=== PATIENT | male | born 1955 | race Caucasian/White ===

== ENCOUNTER 2017-04-03 08:41 | Day surgery (SDC) | payer BC ==
[2017-04-02 10:17] VITALS: BMI 27.1
[2017-04-03 10:03] LABS: #Basophils 0.1 thou/uL (0.0-0.2); #Eosinphils 0.1 thou/uL (0.0-0.7); #Lymphocytes 1.3 thou/uL (1.20-3.40); #Monocytes 0.5 thou/uL (0.11-0.59); #Neutrophils 4.1 thou/uL (1.40-6.50); %Basophils 1.3 % (0.0-1.0); %Eosinophils 2.3 % (0.0-10.0); %Lymphocytes 21.5 % (21.0-51.0); %Monocytes 8.3 % (0.0-10.0); %Neutrophils 66.6 % (42.0-75.0); Hemoglobin 14.9 g/dL (14.0-18.0); Mean Corpuscular HGB CONC 32.9 g/dL (32.0-36.0); Mean Corpuscular Hemoglobin 31.5 pg (27.0-31.0); Mean Corpuscular Volume 95.8 fl (80.0-94.0); Mean Platelet Volume 8.1 fL (7.4-10.4); Platelet Count 282 thou/uL (130-400); RBC Distribution Width 11.1 % (11.5-14.5); Red Blood Cell (RBC) Count 4.74 mill/uL (4.70-6.10); White Blood Cell (WBC) Count 6.1 thou/uL (4.8-10.8)
[2017-04-03 10:15] LABS: Prothrombin Time 13.4 SEC (12.0-14.7)
[2017-04-03 10:16] LABS: PTT 25.3 SEC (22.9-36.1)
[2017-04-03 10:28] LABS: Anion Gap 15 mmol/L (10-20); BUN (Urea Nitrogen) 14 mg/dL (8.4-25.7); Calc. Creatinine Clearance 83 mL/min (70-130); Calcium 9.5 mg/dL (7.8-10.44); Carbon Dioxide 27 mmol/L (23-31); Chloride 103 mmol/L (98-107); Estimated GFR-MDRD 73; Glucose 108 mg/dL (80-115); Potassium 3.6 mmol/L (3.5-5.1); Sodium 141 mmol/L (136-145)
[2017-04-03] MEDS ORDERED: Midazolam HCl 2 mg/2 ml Vial ONE (11:38)
[2017-04-03] MEDS ORDERED: Fentanyl 100 MCG/2 ML VIAL ONE (11:38)
[2017-04-03] MEDS ORDERED: Bacitracin Zinc Ointment 30 gm TUBE ONE (11:45)
[2017-04-03] MEDS ORDERED: Thrombin 5000 UNITS/5 ML VIAL ONE (11:45)
[2017-04-03] MEDS ORDERED: CEFAZOLIN/Water 2 GM/20 ML SYRINGE ONE (12:16)
[2017-04-03] MEDS ORDERED: Ondansetron HCl/PF 4 MG/2 ML Vial ONE (12:51)
[2017-04-03] MEDS ORDERED: PROPOFOL 200 MG/20 ML VIAL ONE (12:51)
[2017-04-03] MEDS ORDERED: Lidocaine 1% PF 5 ML VIAL ONE (12:51)
[2017-04-03] MEDS ORDERED: Dexamethasone 20 MG/5 ML VIAL ONE (12:51)
[2017-04-03] MEDS ORDERED: Glycopyrrolate 0.2 MG/ML 5 ML SYRINGE ONE (12:51)
[2017-04-03] MEDS ORDERED: ePHEDrine/0.9% NaCl/PF SYRINGE 50 mg/10 ml ONE (12:51)
[2017-04-03] MEDS ORDERED: PHENYLEPHRINE-NS 100 MCG/ML 10 ML SYRINGE ONE (12:51)
[2017-04-03] MEDS ORDERED: Fentanyl 250 MCG/5 ML VIAL ONE (14:03)
[2017-04-03] MEDS ORDERED: Promethazine HCl 25 MG/ML VIAL SLOW IVP PRN (16:06)
[2017-04-03] MEDS ORDERED: Meperidine HCl/PF 25 MG/ML VIAL SLOW IVP PRN (16:06)
[2017-04-03] MEDS ORDERED: Morphine Sulfate 2 MG/ML SYRINGE SLOW IVP PRN (16:06)
[2017-04-03] MEDS ORDERED: HYDROmorphone 2 MG/ML VIAL SLOW IVP PRN (16:06)
[2017-04-03] MEDS ORDERED: Promethazine 25 MG TAB PO PRN (16:23)
[2017-04-03] MEDS ORDERED: Fleet Enema 133 ML BOT PR PRN (16:23)
[2017-04-03] MEDS ORDERED: Acetaminophen/Codeine 30-300mg Tablet PO PRN (16:23)
[2017-04-03] MEDS ORDERED: Bisacodyl 10 MG SUPP PR PRN (16:23)
[2017-04-03] MEDS ORDERED: Milk Of Magnesia 30 ML UDCUP PO PRN (16:23)
[2017-04-03] MEDS ORDERED: traMADol HCl 50 MG TAB PO PRN (16:23)
[2017-04-03] MEDS ORDERED: Mag-Al 1200 mg/1200 mg/30 ML UDCUP PO PRN (16:23)
[2017-04-03] MEDS ORDERED: Acetaminophen 325 MG TAB PO PRN (16:23)
[2017-04-03] MEDS ORDERED: Ondansetron HCl/PF 4 MG/2 ML Vial IVP PRN (16:23)
[2017-04-03] MEDS ORDERED: tiZANidine HCl 4 MG TAB PO PRN (16:23)
[2017-04-03] MEDS ORDERED: Nitroglycerin 0.4 MG TAB (25 Tab Bottle) SL PRN (16:26)
[2017-04-03] MEDS ORDERED: Labetalol HCl 100 MG/20 ML VIAL SLOW IVP PRN (16:31)
[2017-04-03] MEDS ORDERED: HYDROmorphone 0.5 MG/0.5 ML SYRINGE ONE ×4 (16:36→19:01)
[2017-04-03] MEDS ORDERED: Labetalol HCl 100 MG/20 ML VIAL ONE (18:34)
[2017-04-03] MEDS: Sodium Chloride 0.9% 1,000 ML IV SCH (20:21)
[2017-04-03] MEDS: HYDROcodone/Acetaminophen 7.5/325 mg Tablet PO PRN (22:55)
[2017-04-03] MEDS: CEFAZOLIN/Water 2 GM/20 ML SYRINGE SLOW IVP SCH (22:55)
[2017-04-03] MEDS: Carvedilol 6.25 MG TAB PO SCH (22:56)
[2017-04-03] MEDS: Rosuvastatin 20 MG TAB PO SCH (22:56)
--- NOTE | 2017-04-03 23:45 | EKG ---
Test Reason : PREOP Blood Pressure : / mmHG Vent. Rate : 059 BPM Atrial Rate : 059 BPM P-R Int : 154 ms QRS Dur : 090 ms QT Int : 418 ms P-R-T Axes : 038 -22 027 degrees QTc Int : 413 ms Sinus bradycardia Otherwise normal ECG When compared with ECG of 08-AUG-2016 12:43, (Unconfirmed) No significant change was found Confirmed by Jayme SEALS ([id number]) on 04/03/2017 11:44:54 PM Referred By: TROY Confirmed By:Jayme SEALS
[2017-04-04] MEDS: HYDROcodone/Acetaminophen 7.5/325 mg Tablet PO PRN ×3 (04:37→16:19)
[2017-04-04] MEDS: CEFAZOLIN/Water 2 GM/20 ML SYRINGE SLOW IVP SCH (04:40)
[2017-04-04] MEDS: Sodium Chloride 0.9% 1,000 ML IV SCH ×2 (07:04→20:39)
[2017-04-04] MEDS: Chlorthalidone 25 MG TAB PO SCH (08:46)
[2017-04-04] MEDS: Carvedilol 6.25 MG TAB PO SCH ×2 (08:46→20:40)
--- NOTE | 2017-04-04 09:03 | PRG ---
DATE OF SERVICE: 04/04/2017 Mr. Akers is doing well postoperative day 1 from lumbar decompression. His leg pain is improved com pared to before surgery. He has good strength in his lower extremities. We went over both intra and postoperative issues. His wound is satisfactory. We will plan on dismissal.
--- NOTE | 2017-04-04 10:04 | OP ---
DATE OF PROCEDURE: 04/03/2017 WOUND TYPE: Type 1 wound. SURGEON: Jesse Colunga M.D. [employer] MANAGER: Simone Marcus PA-C. PREPROCEDURE DIAGNOSIS: Lumbar stenosis with low back and leg pain. POSTPROCEDURE DIAGNOSES: Lumbar stenosis with low back and leg pain. PROCEDURE: L4-L5, L5-S1 laminectomy, partial facetectomies and foraminotomies over the L4, L5, and S 1 nerve roots bilaterally. DESCRIPTION OF PROCEDURE: After informed consent was obtained from the patient, the patient brought to OR 11. Proper patient pause and identification was carried out. He was placed under excellent ge neral endotracheal anesthesia and positioned prone on the operating room table. All appropriate poin ts were padded. We identified the L4, L5 and S1 dorsal spines and lamina. A linear everton was made ov er this region. This area again was sterilely cleansed, prepared, and draped. Proper patient pause and identification was carried out. The wound was then opened with a combination of sharp, monopolar and blunt dissection, and the L4, L5 and S1 dorsal spines and lamina were exposed. Localization keesha m confirmed our area of interest. We then performed an L4, L5, and S1 laminectomies, partial facetec tomies and foraminotomies over the L4, L5, and S1 nerve roots. We had excellent decompression of the common dural tube and the nerve roots. Copious irrigation occurred. Hemostasis was maximized throu ghout. There was no spinal fluid leak. The wound was then closed in anatomic layers after sprinklin g of vancomycin powder. The patient then emerged from anesthesia.
[2017-04-04] MEDS: Morphine 2 MG/ML SYRINGE SLOW IVP PRN ×3 (10:13→18:13)
[2017-04-04] MEDS ORDERED: Gabapentin 100 MG CAP PO SCH (12:45)
[2017-04-04] MEDS: Gabapentin 100 MG CAP PO SCH ×2 (15:02→20:40)
[2017-04-04] MEDS: methylPREDNISolone 4 mg Tablet PO SCH ×3 (15:20→20:42)
[2017-04-04] MEDS: Rosuvastatin 20 MG TAB PO SCH (20:40)
[2017-04-05] MEDS: Gabapentin 100 MG CAP PO SCH (08:28)
[2017-04-05] MEDS: Carvedilol 6.25 MG TAB PO SCH (08:28)
[2017-04-05] MEDS: methylPREDNISolone 4 mg Tablet PO SCH ×2 (08:28→12:28)
[2017-04-05] MEDS: Chlorthalidone 25 MG TAB PO SCH (08:28)
[2017-04-05] MEDS: HYDROcodone/Acetaminophen 7.5/325 mg Tablet PO PRN (08:31)
[2017-04-05] MEDS: Sodium Chloride 0.9% 1,000 ML IV SCH (08:32)
--- NOTE | 2017-04-05 11:17 | PRG ---
DATE OF SERVICE: 04/05/2017 Mr. Akers is now postoperative day #2 having undergone lumbar laminectomy with Dr. Colunga. The pat ient has occurrence of right hip pain that was severe yesterday at lunchtime requiring him to stay ov ernight. Medrol Dosepak, Protonix, and gabapentin were initiated. Today the patient states he is co ntinuing to experience right hip pain, although this is improved from what it was yesterday. He stat es he would like to go home. He has been ambulating in the turner, voiding spontaneously, tolerating a solid diet and his pain is well controlled with oral medications at this time. He remains at neurol ogic baseline with good strength in the bilateral lower extremities. His incision is dressed and the dressing appears to be clean and dry. We will plan for dismissal today. I have provided appropriate medications for the patient. I have r eminded that the patient and his of appropriate postoperative activity restrictions and wound ca re. The patient is pleased with the outcome, but understands he needs continued time to heal. Again , he is stable for discharge at any time. Orders have been placed.
[2017-04-05 11:30] VITALS: BP 136/88; TEMP 98.5
[2017-04-05] MEDS: Morphine 2 MG/ML SYRINGE SLOW IVP PRN (12:27)
[2017-04-05] MEDS ORDERED: methylPREDNISolone 4 mg Tablet PO SCH (21:00)
[2017-04-06] MEDS ORDERED: methylPREDNISolone 4 mg Tablet PO SCH (08:00)
[2017-04-07] MEDS ORDERED: methylPREDNISolone 4 mg Tablet PO SCH (08:00)
[2017-04-08] MEDS ORDERED: methylPREDNISolone 4 mg Tablet PO SCH (08:00)
[2017-04-09] MEDS ORDERED: methylPREDNISolone 4 mg Tablet PO SCH (08:00)
== END 2017-04-05 13:15 | disposition home or self-care (01) ==
LOC: SDC 08:41 → SURG B 16:23 → SDC 04-05 13:15
PROVIDERS: ATTEND Surgery
PROC: 01NB0ZZ Release Lumbar Nerve, Open Approach (ICD-10-PCS; principal; 2017-04-03)
DX: M48.061 Spinal stenosis, lumbar region without neurogenic claudication (principal); M54.16 Radiculopathy, lumbar region; Z88.8 Allergy status to other drugs, medicaments and biological substances; Z98.890 Other specified postprocedural states
CPT/HCPCS: 36415; 76001; 80048; 85025; 85610; 85730; 93005; 93010; 96374; J1100; J1170; J2001; J2250; J2270; J2405; J2704; J3010; J3370

== ENCOUNTER 2018-04-11 10:08 | Outpatient (CLI) | payer OTHER ==
--- NOTE | 2018-04-11 10:38 | RAD ---
LUMBAR SPINE SERIES 2 VIEWS: HISTORY: Disability examination. FINDINGS: There are marked arthritic changes of the spine. There is moderate disk narrowing at L1-2. Prominen t osteophytic changes along the course of the lumbar spine. Mild disk narrowing at L3-4 and marked d isk narrowing at L5-S1 with laminectomy change at this level. Pedicles are intact. IMPRESSION: Moderate arthritic changes and postop changes of the spine. POS: [facility]
== END 2018-04-11 10:09 | disposition home or self-care (01) ==
LOC: BICRAD 10:08
PROVIDERS: ATTEND Internal Medicine
DX: Z02.71 Encounter for disability determination (principal); M46.96 Unspecified inflammatory spondylopathy, lumbar region; Z98.890 Other specified postprocedural states
CPT/HCPCS: 72100

== ENCOUNTER 2020-11-13 16:59 | Observation (INO) | payer BC, MEDICARE ==
[2020-11-13 18:11] LABS: #Basophils 0.1 thou/uL (0.0-0.2); #Eosinphils 0.1 thou/uL (0.0-0.7); #Lymphocytes 1.3 thou/uL (1.20-3.40); #Monocytes 0.7 thou/uL (0.11-0.59); #Neutrophils 4.8 thou/uL (1.40-6.50); %Basophils 1.1 % (0.0-1.0); %Eosinophils 0.8 % (0.0-10.0); %Lymphocytes 18.3 % (21.0-51.0); %Monocytes 9.5 % (0.0-10.0); %Neutrophils 70.2 % (42.0-75.0); Hemoglobin 15.4 g/dL (14.0-18.0); Mean Corpuscular HGB CONC 34.4 g/dL (32.0-36.0); Mean Corpuscular Hemoglobin 33.3 pg (27.0-31.0); Mean Corpuscular Volume 96.6 fL (78.0-98.0); Mean Platelet Volume 8.3 fL (7.4-10.4); Platelet Count 235 thou/uL (130-400); Red Blood Cell (RBC) Count 4.62 mill/uL (4.70-6.10); White Blood Cell (WBC) Count 6.9 thou/uL (4.8-10.8)
[2020-11-13 18:32] LABS: ALT (SGPT) 70 U/L (8-55); AST (SGOT) 86 U/L (5-34); Alkaline Phosphatase 53 U/L (40-110); Anion Gap 16 mmol/L (10-20); BUN (Urea Nitrogen) 22 mg/dL (8.4-25.7); Bilirubin, Total 0.4 mg/dL (0.2-1.2); Calc. Creatinine Clearance 0 mL/min (70-130); Calcium 8.8 mg/dL (7.8-10.44); Carbon Dioxide 21 mmol/L (23-31); Chloride 104 mmol/L (98-107); Globulin 3.8 g/dL (2.4-3.5); Glucose 110 mg/dL (80-115); Potassium 3.6 mmol/L (3.5-5.1); Protein, Total 7.8 g/dL (5.8-8.1); Sodium 137 mmol/L (136-145)
[2020-11-13 18:40] LABS: Bilirubin Negative (Negative); Blood, Urine Negative (Negative); Clarity Clear (Clear); Glucose, Urine (Dipstick) Normal (Negative); Ketone, Urine Negative (Negative); Leukocyte Negative Leu/uL (Negative); Nitrite Negative (Negative); Protein, Urine (Dipstick) Negative (Neg-Trace); Specific Gravity, Urine 1.017 (1.002-1.036); Urobilinogen Normal mg/dL (Less than 2)
[2020-11-13 18:49] LABS: SARS-CoV-2 NAA Rapid Test DETECTED (NotDetected)
[2020-11-13] MEDS ORDERED: HYDROcodone/Acetaminophen 5/325 mg Tablet PO PRN (20:48)
[2020-11-13] MEDS ORDERED: Loperamide HCl 2 MG CAP PO PRN (20:48)
[2020-11-13] MEDS ORDERED: Ondansetron PF 4 MG/2 ML Vial IVP PRN (20:48)
[2020-11-13] MEDS ORDERED: hydrALAZINE 20 MG/ML VIAL SLOW IVP PRN (20:58)
[2020-11-13] MEDS ORDERED: Nitroglycerin 0.4 MG TAB (25 Tab Bottle) SL PRN (20:58)
[2020-11-13] MEDS ORDERED: Rosuvastatin 20 MG TAB PO SCH (21:00)
[2020-11-14 00:57] VITALS: BMI 25.9
[2020-11-14] MEDS: Sodium Chloride 0.9% 1,000 ML IV SCH ×2 (02:26→13:29)
[2020-11-14] MEDS: Carvedilol 3.125 MG TAB PO SCH ×2 (02:28→09:06)
[2020-11-14 04:04] LABS: Creatinine, Urine 147.89 mg/dL (63-166)
[2020-11-14 05:12] LABS: Eosinophils 3 % (0-10); Hemoglobin 13.6 g/dL (14.0-18.0); Lymphocytes 32 % (21-51); MDiff Complete? YES; Mean Corpuscular HGB CONC 33.8 g/dL (32.0-36.0); Mean Corpuscular Hemoglobin 32.2 pg (27.0-31.0); Mean Corpuscular Volume 95.3 fL (78.0-98.0); Mean Platelet Volume 8.2 fL (7.4-10.4); Monocytes 12 % (0-10); Neutrophil 53 % (42-75); Platelet Count 216 thou/uL (130-400); Platelet Morphology Comment Appears Adequate; Red Blood Cell (RBC) Count 4.23 mill/uL (4.70-6.10); White Blood Cell (WBC) Count 4.6 thou/uL (4.8-10.8)
[2020-11-14 05:20] LABS: Albumin 3.5 g/dL (3.4-4.8); Anion Gap 11 mmol/L (10-20); BUN (Urea Nitrogen) 19 mg/dL (8.4-25.7); BUN/Creatinine Ratio 15.45; Calc. Creatinine Clearance 63 mL/min (70-130); Calcium 8.4 mg/dL (7.8-10.44); Carbon Dioxide 26 mmol/L (23-31); Chloride 104 mmol/L (98-107); Glucose 94 mg/dL (80-115); Potassium 3.5 mmol/L (3.5-5.1); Sodium 137 mmol/L (136-145)
[2020-11-14 05:26] LABS: Troponin I Less than 0.010 ng/mL (< 0.028)
[2020-11-14] MEDS ORDERED: Aspirin 81 mg Enteric Coated Tablet PO SCH (09:00)
[2020-11-14] MEDS ORDERED: Enoxaparin Sodium 40 MG/0.4 ML SYRINGE SC SCH (09:00)
[2020-11-14] MEDS ORDERED: Zinc Sulfate 220 MG CAP PO SCH (09:00)
[2020-11-14 13:46] LABS: ALT (SGPT) 59 U/L (8-55); AST (SGOT) 59 U/L (5-34); Albumin 3.6 g/dL (3.4-4.8); Alkaline Phosphatase 42 U/L (40-110); Bilirubin, Direct 0.1 mg/dL (0.1-0.3); Bilirubin, Total 0.4 mg/dL (0.2-1.2); Protein, Total 6.7 g/dL (5.8-8.1)
[2020-11-14 18:27] VITALS: BP 168/90; TEMP 98.4
== END 2020-11-14 18:35 | disposition home or self-care (01) ==
LOC: ERS 16:59 → 2SW 19:58 → INTOOBSV 19:58
PROVIDERS: ADMIT Internal Medicine; ATTEND Internal Medicine
PROC: 8E0ZXY6 Isolation (ICD-10-PCS; principal; 2020-11-13)
DX: U07.1 COVID-19 (principal); N17.9 Acute kidney failure, unspecified; I10 Essential (primary) hypertension; E78.5 Hyperlipidemia, unspecified; K21.9 Gastro-esophageal reflux disease without esophagitis; E78.00 Pure hypercholesterolemia, unspecified; I95.1 Orthostatic hypotension; R19.7 Diarrhea, unspecified; E86.0 Dehydration; T50.1X5A Adverse effect of loop [high-ceiling] diuretics, initial encounter; Z88.8 Allergy status to other drugs, medicaments and biological substances; Z79.82 Long term (current) use of aspirin; Z79.899 Other long term (current) drug therapy; Z87.891 Personal history of nicotine dependence
CPT/HCPCS: 0240U; 36415; 71045; 80053; 80069; 81003; 82570; 84300; 84443; 84484; 85007; 85025; 85027; 85379; 86140; 93005; 93306; 93880; J1650; J7050

== ENCOUNTER 2021-04-06 09:19 | Outpatient (CLI) | payer MEDICARE | END 2021-04-06 09:20 | disposition home or self-care (01) | LOC: BICULT 09:19 | PROVIDERS: ATTEND Nurse Practitioner Family | DX: Z13.6 Encounter for screening for cardiovascular disorders (principal) | CPT/HCPCS: 76775 ==

== ENCOUNTER 2021-08-09 05:50 | Observation (INO) | payer BC, MEDICARE ==
[2021-08-09] MEDS ORDERED: Aspirin Chewable 81 MG TAB ONE ×2 (06:02→06:03)
[2021-08-09 06:21] LABS: Hemoglobin 16.1 g/dL (14.0-18.0); Mean Corpuscular HGB CONC 34.1 g/dL (32.0-36.0); Mean Corpuscular Hemoglobin 33.2 pg (27.0-31.0); Mean Corpuscular Volume 97.6 fL (78.0-98.0); Platelet Count 196 thou/uL (130-400); RBC Distribution Width 11.5 % (11.5-14.5); Red Blood Cell (RBC) Count 4.85 mill/uL (4.70-6.10); White Blood Cell (WBC) Count 5.5 thou/uL (4.8-10.8)
[2021-08-09] MEDS ORDERED: Nitroglycerin 2% Ointment 1 INCH/1 GM Packet ONE ×2 (06:27→11:42)
[2021-08-09 06:47] LABS: Eosinophils 3 % (0-10); Lymphocytes 48 % (21-51); MDiff Complete? YES; Monocytes 6 % (0-10); Neutrophil 43 % (42-75); Platelet Morphology Comment Appears Adequate; RBC Morphology Normal
[2021-08-09 07:48] LABS: Albumin 4.2 g/dL (3.4-4.8)
[2021-08-09 07:49] LABS: Chloride 105 mmol/L (98-107); Potassium 3.9 mmol/L (3.5-5.1); Sodium 141 mmol/L (136-145)
[2021-08-09 07:50] LABS: Calcium 9.4 mg/dL (7.8-10.44); Glucose 112 mg/dL (80-115)
[2021-08-09 07:51] LABS: Globulin 3.5 g/dL (2.4-3.5); Protein, Total 7.7 g/dL (5.8-8.1)
[2021-08-09 07:52] LABS: Anion Gap 19 mmol/L (10-20); Bilirubin, Total 0.6 mg/dL (0.2-1.2); Carbon Dioxide 21 mmol/L (23-31)
[2021-08-09 07:53] LABS: Alkaline Phosphatase 45 U/L (40-110)
[2021-08-09 07:54] LABS: Calc. Creatinine Clearance 0 mL/min (70-130)
[2021-08-09 07:55] LABS: BUN (Urea Nitrogen) 16 mg/dL (8.4-25.7)
[2021-08-09 07:56] LABS: ALT (SGPT) 13 U/L (8-55); AST (SGOT) 21 U/L (5-34)
[2021-08-09] MEDS ORDERED: Losartan 25 MG TAB PO SCH ×2 (09:00→12:00)
[2021-08-09] MEDS ORDERED: Chlorthalidone 25 MG TAB PO SCH (09:00)
[2021-08-09 09:28] LABS: Troponin I Less than 0.010 ng/mL (< 0.028)
[2021-08-09] MEDS ORDERED: Iopamidol-370 76% 500 ML 1 ML ONE (09:53)
[2021-08-09] MEDS ORDERED: Nitroglycerin 0.4 MG TAB (25 Tab Bottle) SL PRN (09:53)
[2021-08-09] MEDS ORDERED: hydrALAZINE 20 MG/ML VIAL SLOW IVP PRN (09:55)
[2021-08-09] MEDS ORDERED: Lorazepam 0.5 MG TAB PO PRN (09:57)
[2021-08-09] MEDS ORDERED: Ondansetron ODT 4 MG TAB PO PRN (09:57)
[2021-08-09] MEDS ORDERED: Electrolyte Replacement Protocol 1 EACH FS PRN (10:00)
[2021-08-09] MEDS ORDERED: Carvedilol 3.125 MG TAB PO SCH (10:00)
[2021-08-09] MEDS ORDERED: Cyanocobalamin (Vitamin B-12) 1,000 MCG TAB PO SCH (10:15)
[2021-08-09] MEDS ORDERED: Pantoprazole 40 MG VIAL ONE (10:25)
[2021-08-09] MEDS ORDERED: Lidocaine 2% Viscous Solution 10 ML, Aluminum & Magnesium Hydroxide 30 ML SSW SCH (10:30)
[2021-08-09] MEDS ORDERED: pyridOXINE 50 MG (B6) TAB PO SCH (10:30)
[2021-08-09] MEDS ORDERED: Mag-Al 1200 mg/1200 mg/30 ML UDCUP ONE (11:42)
[2021-08-09] MEDS ORDERED: Lidocaine Viscous Sol 2% 15 ml UD Cup ONE (11:42)
[2021-08-09 12:33] LABS: ALT (SGPT) 12 U/L (8-55); AST (SGOT) 15 U/L (5-34); Alkaline Phosphatase 41 U/L (40-110); Anion Gap 13 mmol/L (10-20); BUN (Urea Nitrogen) 17 mg/dL (8.4-25.7); Bilirubin, Total 0.9 mg/dL (0.2-1.2); Calc. Creatinine Clearance 0 mL/min (70-130); Calcium 9.2 mg/dL (7.8-10.44); Carbon Dioxide 27 mmol/L (23-31); Chloride 104 mmol/L (98-107); Globulin 3.3 g/dL (2.4-3.5); Glucose 100 mg/dL (80-115); Magnesium 1.4 mg/dL (1.6-2.6); Phosphorus 3.1 mg/dL (2.3-4.7); Potassium 3.2 mmol/L (3.5-5.1); Protein, Total 7.3 g/dL (5.8-8.1); Sodium 141 mmol/L (136-145)
[2021-08-09 12:37] LABS: Troponin I Less than 0.010 ng/mL (< 0.028)
[2021-08-09] MEDS: Thiamine HCl 200 MG/2 ML VIAL SLOW IVP SCH (12:37)
[2021-08-09] MEDS: Nitroglycerin 2% Ointment 1 INCH/1 GM Packet TOP SCH ×3 (12:45→23:49)
[2021-08-09] MEDS ORDERED: Potassium Chloride 20 MEQ TAB PO SCH (13:00)
[2021-08-09] MEDS ORDERED: Electrolyte Replacement Protocol FS PRN (13:00)
[2021-08-09] MEDS ORDERED: Magnesium 2 GM/50 ML(in water) 2 GM in Premix Bag 1 BAG IVPB SCH (13:00)
[2021-08-09] MEDS ORDERED: Magnesium 2 GM/50 ML BAG (IN WATER) ONE (13:05)
[2021-08-09] MEDS ORDERED: Potassium Chloride 20 MEQ TAB ONE (13:05)
[2021-08-09] MEDS ORDERED: hydrALAZINE 20 MG/ML VIAL ONE (13:19)
[2021-08-09 15:29] LABS: Troponin I Less than 0.010 ng/mL (< 0.028)
[2021-08-09] MEDS: Carvedilol 6.25 MG TAB PO SCH (17:01)
[2021-08-09] MEDS ORDERED: Communication Order-Pharmacy FS SCH (18:00)
[2021-08-09] MEDS ORDERED: Rosuvastatin 20 MG TAB PO SCH (21:00)
[2021-08-10] MEDS ORDERED: Acetaminophen 325 MG TAB PO PRN (04:49)
[2021-08-10 05:27] LABS: Anion Gap 9 mmol/L (10-20); BUN (Urea Nitrogen) 17 mg/dL (8.4-25.7); Calc. Creatinine Clearance 4 mL/min (70-130); Calcium 8.8 mg/dL (7.8-10.44); Carbon Dioxide 28 mmol/L (23-31); Chloride 104 mmol/L (98-107); Glucose 115 mg/dL (80-115); Magnesium 1.6 mg/dL (1.6-2.6); Potassium 3.2 mmol/L (3.5-5.1); Sodium 138 mmol/L (136-145)
[2021-08-10] MEDS: Nitroglycerin 2% Ointment 1 INCH/1 GM Packet TOP SCH ×2 (06:36→13:34)
[2021-08-10] MEDS: Carvedilol 6.25 MG TAB PO SCH (06:36)
[2021-08-10] MEDS ORDERED: Magnesium 2 GM/50 ML(in water) 2 GM in Premix Bag 1 BAG IVPB SCH (08:00)
[2021-08-10] MEDS ORDERED: Potassium Chloride 20 MEQ TAB PO SCH (08:00)
[2021-08-10] MEDS ORDERED: Loperamide HCl 2 MG CAP PO PRN (08:39)
[2021-08-10] MEDS ORDERED: Sodium Chloride 0.65% Nasal 44 ML BOT EA NARE PRN (08:39)
[2021-08-10] MEDS ORDERED: Senokot S 8.6-50 MG TAB PO PRN (08:39)
[2021-08-10] MEDS ORDERED: Loratadine 10 MG TAB PO PRN (08:39)
[2021-08-10] MEDS ORDERED: Cepastat Lozenges 1 LOZ PO PRN (08:39)
[2021-08-10] MEDS ORDERED: Calcium Carbonate 500 MG ChewTAB PO PRN (08:39)
[2021-08-10] MEDS ORDERED: HYDROcodone/Acetaminophen 5/325 mg Tablet PO PRN (08:39)
[2021-08-10] MEDS ORDERED: GUAIFENESIN SF SOLN 200 MG/10 ML UDCUP PO PRN (08:39)
[2021-08-10] MEDS ORDERED: pyridOXINE 50 MG (B6) TAB PO SCH (09:00)
[2021-08-10] MEDS ORDERED: Losartan 25 MG TAB PO SCH (09:00)
[2021-08-10] MEDS ORDERED: Potassium Chloride 10 MEQ in Premix Bag 1 BAG IVPB SCH (09:00)
[2021-08-10] MEDS ORDERED: Ezetimibe 10 MG TAB PO SCH (09:00)
[2021-08-10] MEDS ORDERED: Multivit, Therapeutic 1 TAB PO SCH (09:00)
[2021-08-10] MEDS ORDERED: Cyanocobalamin (Vitamin B-12) 1,000 MCG TAB PO SCH (09:00)
[2021-08-10] MEDS ORDERED: Chlorthalidone 25 MG TAB PO SCH (09:00)
[2021-08-10] MEDS ORDERED: Folic Acid 1 MG TAB PO SCH (09:00)
[2021-08-10] MEDS: Thiamine HCl 200 MG/2 ML VIAL SLOW IVP SCH (13:35)
[2021-08-10 15:48] VITALS: BP 132/84; TEMP 98.9
[2021-08-12] MEDS ORDERED: Thiamine 100 MG TAB PO SCH (12:00)
== END 2021-08-10 16:33 | disposition home or self-care (01) ==
LOC: ERS 05:50 → ERHOLD 08:57 → 2SW 16:23
PROVIDERS: ADMIT Internal Medicine; ATTEND Internal Medicine
DX: I16.0 Hypertensive urgency (principal); E87.6 Hypokalemia; E78.5 Hyperlipidemia, unspecified; E83.42 Hypomagnesemia; K21.9 Gastro-esophageal reflux disease without esophagitis; E78.00 Pure hypercholesterolemia, unspecified; I10 Essential (primary) hypertension; I25.10 Atherosclerotic heart disease of native coronary artery without angina pectoris; Z79.899 Other long term (current) drug therapy; Z88.8 Allergy status to other drugs, medicaments and biological substances
CPT/HCPCS: 71045; 71275; 74174; 80048; 80053 ×2; 83735 ×2; 84100; 84132; 84484 ×2; 85025; 93005; 94760 ×2; 96374; 96375; 99285; G0378 ×3; U0003; U0005; 36415; C9113; J0360; J3411; J3475; J3480; Q9967